=== PATIENT | female | born 1995 | race Caucasian/White ===

== ENCOUNTER 2023-10-10 07:36 | Inpatient (IN) ==
[2023-10-10] MEDS ORDERED: OXYTOCIN 30 UNITS/NSS 30 UNITS/500 ML BAG IV PRN ×2 (07:54)
[2023-10-10] MEDS ORDERED: LIDOCAINE 1% LOCAL 20 ML VIAL INFIL PRN (07:54)
--- NOTE | 2023-10-10 08:02 | Obstetrical Progress Note ---
Date of Service October 10, 2023 Assessment & Plan Admission and Anticipated Discharge Date Admission Date: October 10, 2023 Subjective Unable to do cervical Gao last night due to high patient census discussed this morning with the patient she was 1 cm 50% in the office for per previous provider recommended cervical Gao she agreed under sterile conditions using a speculum cervical Gao was placed 30 cc into the balloon of sterile saline tolerated well minimal bleeding Results & Data Vital Signs (Past 12 Hours) Vital Signs Pulse BP 10/10/23 07:49 108 H 107/71 PG Care Time/CCT Total # of Minutes Spent Total Time Spent with Patient: Total time spent is greater than 50% in coordination of care (as documented) at patient's floor/unit and/or counseling patient: Coding Level of Care Code None CPT Codes Gao Bulb Placement for Cervical Ripening - 12591 ([id number])
[2023-10-10] MEDS ORDERED: PENICILLIN GK 6 MU in DEXTROSE 5% 250 ML IV ONE (08:15)
[2023-10-10] MEDS: LACTATED RINGER'S 1,000 ML IV PRN ×5 (08:33→20:41)
--- NOTE | 2023-10-10 08:43 | History & Physical Report ---
Date of Service October 10, 2023 Assessment & Plan (1) Encounter for induction of labor: (2) Group beta Strep positive: (3) Post-dates : Plan admit, iv, labs. start pitocin. arom eventually. start pcn now for gbs pos. fhts categ 1 Admission and Anticipated Discharge Date Admission Date: October 10, 2023 History of Present Illness Chief Complaint: planned induction, postdates Primary Care Provider: NO PCP 28yo at 40+wks egmelody presents to L&D for planned induction. Gao ripening balloon placed this am due to pt unable to come in last night. No rom, no vb. +FM. No ctx. Did have vagal response after iv procedure and now doing better. Resting on side. PNC c/b 1. GBS pos PNL rh pos, ri, gbs pos OBH: g1 GYNH: nl paps, no stds Allergies Allergy/AdvReac Type Severity Reaction Status Date / Time No Known Allergies Allergy Verified 10/09/23 11:03 Home Medications Medication Instructions Recorded Confirmed Type prenat.vits,vijay,lum-gxkc-jnzkm 1 tab PO DAILY 04/08/23 10/09/23 History RSV vac, preF A and preF B(PF) 120 0.5 ml IM ONCE #1 ea 08/27/23 10/09/23 Rx mcg/0.5 mL IM solution (Abrysvo) Patient History Medical History (Updated 10/10/23 @ 08:42 by Breanne Garcia MD, FACOG) Hx of migraines Varicella vaccination Surgical History History of gynecologic surgery hymenectomy S/P tonsillectomy S/P left oophorectomy S/P wisdom tooth extraction Family History (Updated 04/08/23 @ 14:14 by Sachi Luu) Mother Hypertension Grandmother (Paternal) Diabetes Grandmother (Maternal) Skin cancer Heart disease Denies family history of Ovarian cancer Breast cancer Colorectal cancer Social History (Updated 04/08/23 @ 14:13 by Sachi Luu) Smoking Status: Never smoker Second Hand Exposure: No; Do You Dip or Chew Tobacco: No; Hx Alcohol Use: No Hx Substance Use: No Preferred Language: Pashto Communication Ability: 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 Beliefs That Will Affect Care: None marital status: marital status details: Luis Kirkland (33) [phone] Current Living Situation: Spouse Current Living Situation Comment: lives with spouse, cats-spouse changing litter current occupational status: unemployed current occupation: teacher Feels Safe at Home: Yes Review of Systems as per Subjective / HPI Physical Exam Constitutional: WD/WN, vitals as above Respiratory: normal respiratory effort, lungs clear to auscultation Cardiovascular: Rate/Rhythm: regular rate and regular rhythm Gastrointestinal (Abdomen): soft gravid nt efw 7-8# Musculoskeletal: no edema nontender calves Neurologic: grossly normal Psychiatric: A+Ox3, euthymic affect Genitourinary: Manual OB Exam: + cervical dilation (1), + cervical effacement 50% and + station (med, mid) -2 OB Exam Monitor Tracing: + external FHT mo nitor used, + external uterine monitor used (no ctx), + category I and + normal FHT variability Results & Data Vital Signs (Past 12 Hours) Vital Signs Pulse BP 10/10/23 08:37 87 116/82 10/10/23 08:35 94 H 111/82 10/10/23 08:33 85 102/68 10/10/23 08:31 87 115/76 10/10/23 08:29 82 114/75 10/10/23 08:27 89 113/55 L 10/10/23 08:24 67 93/52 L 10/10/23 08:20 59 L 58/32 L 10/10/23 07:49 108 H 107/71 Coding Level of Care Code None Diagnoses Encounter for induction of labor Z34.90 Group beta Strep positive B95.1 Post-dates O48.0
[2023-10-10 08:55] LABS: Hemoglobin 11.8 g/dl (12.0-16.0); Mean Corpuscular Hemoglobin 27.3 pg (25.0-34.0); Mean Corpuscular Hgb Conc 32.8 g/dL (32.0-36.0); Mean Corpuscular Volume 83.3 fL (80.0-100.0); Mean Platelet Volume 10.5 fL (9.4-12.4); Platelet Count 265 K/uL (130-400); RDW Coefficient of Variation 14.1 % (11.5-14.5); RDW Standard Deviation 42.5 fL (36.4-46.3); Red Blood Count 4.32 M/uL (4.20-5.40)
[2023-10-10] MEDS: PENICILLIN GK 3 MU in DEXTROSE 5% 100 ML IV PRN ×2 (13:10→21:46)
--- NOTE | 2023-10-10 14:00 | Labor Progress Brief Note ---
Date of Service October 10, 2023 Subjective no complaints. no significant pain with ctx. Assessment & Plan (1) Post-dates : (2) Encounter for induction of labor: (3) Group beta Strep positive: Plan will see how arom helps labor pattern, fhts categ 1. pcn for gbs pos. c/w pitocin Admission and Anticipated Discharge Date Admission Date: October 10, 2023 Physical Exam Constitutional: WD/WN, vitals as above Genitourinary: Manual OB Exam: + cervical dilation 4 cm, + cervical effacement 60%, + station -2 and + amniotic fluid (arom) clear OB Exam Monitor Tracing: + external FHT monitor used (q2-3 pit at 11), + external uterine monitor used (q2. pit at 12), + category I and + normal FHT variability Results & Data Vital Signs (Past 12 Hours) Vital Signs Temp Pulse Resp BP Pulse Ox 10/10/23 13:44 85 112/68 10/10/23 13:39 79 122/77 10/10/23 13:24 92 H 118/77 10/10/23 13:09 90 110/75 10/10/23 12:55 88 111/71 10/10/23 12:38 96 H 98/59 L 10/10/23 12:24 105 H 10/10/23 12:24 108/69 10/10/23 12:24 100 H 114/73 10/10/23 12:08 93 H 118/79 10/10/23 11:54 98.1 F 88 18 114/77 10/10/23 11:39 90 91/52 L 10/10/23 11:23 86 112/74 10/10/23 11:08 95 H 92/58 L 10/10/23 10:53 89 91/55 L 10/10/23 10:38 94 H 104/69 10/10/23 10:32 96 H 101/72 10/10/23 10:13 91 H 117/76 10/10/23 10:10 87 100 10/10/23 10:09 85 113/70 10/10/23 10:05 84 100 10/10/23 10:03 84 113/76 10/10/23 10:00 85 100 10/10/23 09:58 83 112/73 10/10/23 09:55 84 100 10/10/23 09:53 81 115/67 10/10/23 09:50 84 100 10/10/23 09:48 84 114/73 10/10/23 09:45 82 100 10/10/23 09:43 83 110/73 10/10/23 09:40 80 100 10/10/23 09:37 93 H 117/72 10/10/23 09:35 82 10/10/23 09:35 83 114/70 100 10/10/23 09:33 84 128/73 10/10/23 09:32 84 123/74 10/10/23 09:30 75 100 10/10/23 09:29 71 82/51 L 10/10/23 09:27 67 85/51 L 10/10/23 09:25 76 79/51 L 10/10/23 09:24 66 84/52 L 10/10/23 09:22 70 72/42 L 10/10/23 09:03 83 114/76 10/10/23 09:01 82 109/73 10/10/23 08:59 88 108/72 10/10/23 08:57 90 108/71 10/10/23 08:55 82 109/74 10/10/23 08:53 98 H 118/81 10/10/23 08:51 86 115/76 10/10/23 08:49 80 112/75 10/10/23 08:47 81 108/76 10/10/23 08:45 85 111/79 10/10/23 08:43 88 108/76 10/10/23 08:41 84 113/71 10/10/23 08:39 94 H 124/79 10/10/23 08:37 87 116/82 10/10/23 08:35 94 H 111/82 10/10/23 08:33 85 102/68 10/10/23 08:31 87 115/76 10/10/23 08:29 82 114/75 10/10/23 08:27 89 113/55 L 10/10/23 08:24 67 93/52 L 10/10/23 08:20 59 L 58/32 L 10/10/23 07:49 97.7 F 108 H 20 107/71 Coding Level of Care Code None Diagnoses Post-dates O48.0 Encounter for induction of labor Z34.90 Group beta Strep positive B95.1
[2023-10-10] MEDS ORDERED: fentaNYL citrate PF 100 MCG/2 ML VIAL ONE (16:20)
[2023-10-10] MEDS ORDERED: SODIUM CHLORIDE 0.9% PF INJ 10 ML VIAL ONE (16:21)
[2023-10-10] MEDS ORDERED: fentANYL 2 MCG/ML BUPIVacaine 0.125%-NSS 100ML BAG ONE (16:21)
[2023-10-10] MEDS ORDERED: ePHEDrine sulfate 50 MG/ML AMP ONE ×2 (16:21→16:22)
[2023-10-10] MEDS ORDERED: LIDOCAINE 2%/EPINEPHRINE 1:200,000 20 ML PF ONE (16:21)
[2023-10-10] MEDS ORDERED: BUPIVACAINE 0.25% PF 30 ML VIAL ONE (16:21)
[2023-10-10] MEDS ORDERED: BUPIVACAINE 0.25% PF 30 ML VIAL EPI PRN (17:24)
[2023-10-10] MEDS ORDERED: NALOXONE HCL 1 MG in SODIUM CHLORIDE 0.9% 1,000 ML IV PRN (17:24)
[2023-10-10] MEDS ORDERED: LIDOCAINE 2% MPF LOCAL 5 ML VIAL EPI PRN (17:24)
[2023-10-10] MEDS ORDERED: diphenhydrAMINE 50 MG/ML VIAL IV PRN (17:24)
[2023-10-10] MEDS ORDERED: fentANYL 2 MCG/ML BUPIVacaine 0.125%-NSS 100ML BAG EPI PRN (17:24)
[2023-10-10] MEDS ORDERED: fentaNYL citrate PF 100 MCG/2 ML VIAL EPI STA (17:24)
[2023-10-10] MEDS ORDERED: ePHEDrine sulfate 50 MG/ML AMP IV PRN (17:24)
[2023-10-10] MEDS ORDERED: fentaNYL citrate PF 100 MCG/2 ML VIAL EPI PRN (17:24)
[2023-10-10] MEDS ORDERED: ROPIVACAINE 0.5% PF 5 MG/ML 20 ML VIAL EPI PRN (17:24)
[2023-10-10] MEDS ORDERED: NALBUPHINE HCL 5 MG in SYRINGE 0 ML IV PRN (17:24)
[2023-10-10] MEDS ORDERED: BUPIVACAINE 0.25% PF 30 ML VIAL EPI STA (17:24)
[2023-10-10] MEDS ORDERED: NALOXONE HCL 0.4 MG/1 ML VIAL/CARP IV PRN (17:24)
[2023-10-10] MEDS ORDERED: SODIUM CHLORIDE 0.9% PF INJ 10 ML VIAL EPI PRN (17:24)
[2023-10-10] MEDS ORDERED: SODIUM CHLORIDE 0.9% PF INJ 10 ML VIAL EPI STA (17:24)
[2023-10-10] MEDS ORDERED: LIDOCAINE 2%/EPINEPHRINE 1:200,000 20 ML PF EPI STA (17:24)
--- NOTE | 2023-10-10 17:27 | Anesthesiology Consultation ---
Date of Service October 10, 2023 Assessment & Plan Chart Review Chart Review: Patient NOT seen in Pre Admission Testing and Acceptable Risk for Labor Epidural Consults Requested none ASA ASA2 Proposed Anesthesia Anesthesia Type: Labor Epidural Risk / Benefits Reviewed With: PT / POA / Parent / Guardian, Accepts Plan and Informed Consent Obtained History Height/Weight Height: 5 ft 3 in Weight: 92.986 kg Allergies Allergy/AdvReac Type Severity Reaction Status Date / Time No Known Allergies Allergy Verified 10/09/23 11:03 Medications Home Medications Medication Instructions Recorded Confirmed Last Taken prenat.vits,vijay,lrb-xayy-pidpc 1 tab PO DAILY 04/08/23 10/10/23 10/08/23 RSV vac, preF A and preF B(PF) 120 0.5 ml IM ONCE #1 ea 08/27/23 10/10/23 09/10/23 mcg/0.5 mL IM solution (Abrysvo) Active Medications Generic Name Dose Route Start Last Admin Trade Name Freq PRN Reason Stop Dose Admin Oxytocin 30 units in 500 mls @ 18 mls/hr 10/10/23 07:54 10/10/23 14:45 Pitocin 30 Units/Nss IV 10/12/23 07:53 1.08 units/hr .Q24H PRN 18 mls/hr Labor Induction/Augmentation Titration Protocol 1.08 UNITS/HR Lactated Ringer's 1,000 mls @ 125 mls/hr 10/10/23 07:54 10/10/23 15:23 Lr IV 10/12/23 07:53 125 mls/hr .Q8H PRN Administration L&D Protocol Protocol Penicillin G Potassium 3 mu/ 106 mls @ 100 mls/hr 10/10/23 10:54 10/10/23 14:15 Dextrose IV 10/20/23 10:53 Infused Q4H PRN Infusion GBS(+) Until Delivery NPO Date Last Intake of Fluids: 10/10/23 Time Last Intake of Fluids: 16:50 Date Last Intake of Solids: 10/10/23 Time Last Intake of Solids: 06:00 Past Medical History Medical History Hx of migraines Varicella vaccination Exercise / Class Metabolic Activity II 4-5 Yardwork/Stairs/Walk up hill Past Family History Family History (Updated 04/08/23 @ 14:14 by Sachi Luu) Mother Hypertension Grandmother (Paternal) Diabetes Grandmother (Maternal) Skin cancer Heart disease Denies family history of Ovarian cancer Breast cancer Colorectal cancer Past Surgical History Surgical History (Updated 10/10/23 @ 08:53 by Naheed Correa RN) History of hymenectomy History of gynecologic surgery hymenectomy S/P tonsillectomy S/P left oophorectomy S/P wisdom tooth extraction Past Anesthesia History No Hx of Anesthesia Complications and No Family Hx of Anesthesia Complications History of PONV No Hx of PONV and No Hx of Motion Sickness Social History Smoking Status: Never smoker Do You Dip or Chew Tobacco: No Hx Alcohol Use: No Hx Substance Use: No Review of Systems ROS Unobtainable: All systems reviewed & are unremarkable except as noted in HPI & below Physical Exam Vital Signs Last Vital Signs Temp 37.0 C 10/10/23 17:00 Pulse 78 10/10/23 17:23 Resp 20 10/10/23 17:00 BP 105/70 10/10/23 17:23 Pulse Ox 100 10/10/23 17:21 ENMT Mouth: no TMJ abnormality Thyromental Distance: > or= 3.5 Finger Breadths Mallampati Class: II Neck normal visual inspection and trachea midline; neck extension not limited Respiratory normal respiratory effort Auscultation: lungs clear to auscultation bilaterally Cardiovascular Rate/Rhythm: regular rate and regular rhythm Heart Sounds: no murmur Musculoskeletal Spine: normal cervical ROM Extremities: full ROM of extremities Neurologic moves all extremities Psychiatric Orientation: alert and oriented x 3 Testing Laboratory Results 10/10/23 08:26 Blood Type A Positive 10/10/23 08:26 Antibody Screen NEGATIVE 10/10/23 08:26
--- NOTE | 2023-10-10 17:59 | Labor Progress Brief Note ---
Date of Service October 10, 2023 Subjective ctsp due to decel, when i arrived iv bolus aleady going, pit off, pt moving to knee chest position. cx already checked by nurse 6-7cm and 0 station, she just had her epidural placed. Assessment & Plan (1) Encounter for induction of labor: (2) Post-dates : (3) Group beta Strep positive: Plan decel is resolving. now categ 1. will allow in utero resuscitation and plan restart pit if needed. good cx change. c/w pcn for gbs pos Admission and Anticipated Discharge Date Admission Date: October 10, 2023 Physical Exam Genitourinary: OB Exam Monitor Tracing: + external FHT monitor used, + ex ternal uterine monitor used, + category I and + normal FHT variability fht 90s on my arrival and recovering to 140s with accels mod variability. bp ok. Results & Data Vital Signs (Past 12 Hours) Vital Signs Temp Pulse Resp BP Pulse Ox 10/10/23 17:53 128/69 10/10/23 17:52 110 H 139/81 10/10/23 17:51 106 H 100 10/10/23 17:49 122 H 107/55 L 10/10/23 17:47 105 H 110/58 L 10/10/23 17:46 110 H 100 10/10/23 17:45 103 H 113/63 10/10/23 17:44 113 H 126/58 L 10/10/23 17:41 123 H 10/10/23 17:41 127 H 110/79 100 10/10/23 17:40 99 H 10/10/23 17:40 105/73 10/10/23 17:40 113 H 102/65 10/10/23 17:37 106 H 101/56 L 10/10/23 17:36 100 H 100 10/10/23 17:35 93 H 100/57 L 10/10/23 17:33 90 106/68 10/10/23 17:31 92 H 109/68 100 10/10/23 17:29 102 H 106/67 10/10/23 17:27 102 H 103/67 10/10/23 17:26 100 H 100 10/10/23 17:25 105 H 101/67 10/10/23 17:23 78 105/70 10/10/23 17:21 96 H 10/10/23 17:21 95 H 107/72 100 10/10/23 17:19 100 H 115/78 10/10/23 17:17 88 108/69 10/10/23 17:16 96 H 100 10/10/23 17:15 101 H 119/76 10/10/23 17:14 85 114/73 10/10/23 17:12 80 91 10/10/23 17:11 68 10/10/23 17:11 76 101/65 100 10/10/23 17:09 88 100/63 10/10/23 17:08 80 109/67 10/10/23 17:06 91 H 100 10/10/23 17:03 67 107/64 10/10/23 17:01 82 111/69 100 10/10/23 17:00 20 10/10/23 17:00 98.6 F 81 20 10/10/23 16:56 79 100 10/10/23 16:55 95 H 109/71 10/10/23 16:45 94 H 115/78 10/10/23 16:39 90 109/66 10/10/23 16:24 85 111/68 10/10/23 16:17 92 H 114/74 10/10/23 16:11 93 H 99/62 L 10/10/23 15:55 93 H 103/67 10/10/23 15:38 93 H 99/65 L 10/10/23 15:23 87 100/65 10/10/23 15:09 84 106/73 10/10/23 14:55 80 109/72 10/10/23 14:38 81 99/60 L 10/10/23 14:23 86 98/61 L 10/10/23 14:12 86 110/62 10/10/23 13:53 90 113/68 10/10/23 13:44 85 10/10/23 13:44 112/68 10/10/23 13:44 98.6 F 85 18 112/68 10/10/23 13:39 79 122/77 10/10/23 13:24 92 H 118/77 10/10/23 13:09 90 110/75 10/10/23 12:55 88 111/71 10/10/23 12:38 96 H 98/59 L 10/10/23 12:24 105 H 10/10/23 12:24 108/69 10/10/23 12:24 100 H 114/73 10/10/23 12:08 93 H 118/79 10/10/23 11:54 98.1 F 88 18 114/77 10/10/23 11:39 90 91/52 L 10/10/23 11:23 86 112/74 10/10/23 11:08 95 H 92/58 L 10/10/23 10:53 89 91/55 L 10/10/23 10:38 94 H 104/69 10/10/23 10:32 96 H 101/72 10/10/23 10:13 91 H 117/76 10/10/23 10:10 87 100 10/10/23 10:09 85 113/70 10/10/23 10:05 84 100 10/10/23 10:03 84 113/76 10/10/23 10:00 85 100 10/10/23 09:58 83 112/73 10/10/23 09:55 84 100 10/10/23 09:53 81 115/67 10/10/23 09:50 84 100 10/10/23 09:48 84 114/73 10/10/23 09:45 82 100 10/10/23 09:43 83 110/73 10/10/23 09:40 80 100 10/10/23 09:37 93 H 117/72 10/10/23 09:35 82 10/10/23 09:35 83 114/70 100 10/10/23 09:33 84 128/73 10/10/23 09:32 84 123/74 10/10/23 09:30 75 100 10/10/23 09:29 71 82/51 L 10/10/23 09:27 67 85/51 L 10/10/23 09:25 76 79/51 L 10/10/23 09:24 66 84/52 L 10/10/23 09:22 70 72/42 L 10/10/23 09:03 83 114/76 10/10/23 09:01 82 109/73 10/10/23 08:59 88 108/72 10/10/23 08:57 90 108/71 10/10/23 08:55 82 109/74 10/10/23 08:53 98 H 118/81 10/10/23 08:51 86 115/76 12/07/23 08:49 80 112/75 10/10/23 08:47 81 108/76 10/10/23 08:45 85 111/79 10/10/23 08:43 88 108/76 10/10/23 08:41 84 113/71 10/10/23 08:39 94 H 124/79 10/10/23 08:37 87 116/82 10/10/23 08:35 94 H 111/82 10/10/23 08:33 85 102/68 10/10/23 08:31 87 115/76 10/10/23 08:29 82 114/75 10/10/23 08:27 89 113/55 L 10/10/23 08:24 67 93/52 L 10/10/23 08:20 59 L 58/32 L 10/10/23 07:49 97.7 F 108 H 20 107/71 Coding Level of Care Code None Diagnoses Encounter for induction of labor Z34.90 Post-dates O48.0 Group beta Strep positive B95.1
[2023-10-10] MEDS ORDERED: Nursing to Pharmacy Communication SCH (23:45)
--- NOTE | 2023-10-11 00:57 | Labor Progress Brief Note ---
Date of Service October 11, 2023 Subjective shaking in labor. ? if having pain Assessment & Plan (1) Encounter for induction of labor: (2) Post-dates : (3) Group beta Strep positive: Plan cont to increase pitocin to keep labor pattern regular. fhts categ 1. Admission and Anticipated Discharge Date Admission Date: October 10, 2023 Physical Exam Constitutional: WD/WN, vitals as above Genitourinary: Manual OB Exam: + cervical dilation (rim), + cervical effacement 100% and + station 0 OB Exam Monitor Tracing: + external FHT monitor used, + external uterine monitor used (q2-3), + category I and + normal FHT variability Results & Data Vital Signs (Past 12 Hours) Vital Signs Temp Pulse Resp BP Pulse Ox 10/11/23 00:51 98 H 100 10/11/23 00:46 93 H 100 10/11/23 00:43 100 H 117/68 10/11/23 00:41 103 H 99 10/11/23 00:36 99 H 100 10/11/23 00:31 96 H 100 10/11/23 00:29 109 H 97/52 L 10/11/23 00:26 99 H 100 10/11/23 00:21 104 H 100 10/11/23 00:16 92 H 100 10/11/23 00:12 93 H 94/55 L 10/11/23 00:11 100 H 100 10/11/23 00:06 93 H 100 10/11/23 00:01 101 H 99 10/10/23 23:57 91 H 97/58 L 10/10/23 23:56 104 H 100 10/10/23 23:51 93 H 99 10/10/23 23:46 97 H 100 10/10/23 23:42 100 H 97/60 L 10/10/23 23:41 102 H 99 10/10/23 23:36 102 H 100 10/10/23 23:31 93 H 100 10/10/23 23:29 98 H 97/59 L 10/10/23 23:28 87 87/53 L 10/10/23 23:26 86 100 10/10/23 23:21 87 100 10/10/23 23:18 92 H 99/58 L 10/10/23 23:16 96 H 99 10/10/23 23:11 112 H 100 10/10/23 23:06 107 H 100 10/10/23 23:01 104 H 100 10/10/23 23:00 18 10/10/23 23:00 98.2 F 18 10/10/23 22:58 101 H 123/76 10/10/23 22:56 100 H 100 10/10/23 22:51 97 H 100 10/10/23 22:46 90 99 10/10/23 22:42 96 H 115/70 10/10/23 22:41 93 H 100 10/10/23 22:36 99 H 100 10/10/23 22:31 98 H 100 10/10/23 22:26 98 H 100 10/10/23 22:21 110 H 100 10/10/23 22:16 109 H 100 10/10/23 22:13 92 H 102/55 L 10/10/23 22:11 96 H 100 10/10/23 22:06 90 100 10/10/23 22:01 95 H 100 10/10/23 21:58 94 H 105/56 L 10/10/23 21:56 94 H 100 10/10/23 21:51 95 H 100 10/10/23 21:46 98 H 100 10/10/23 21:42 97 H 97/54 L 10/10/23 21:41 91 H 99 10/10/23 21:36 87 99 10/10/23 21:31 94 H 100 10/10/23 21:27 85 93/51 L 10/10/23 21:26 83 98 10/10/23 21:21 88 99 10/10/23 21:16 103 H 100 10/10/23 21:13 102 H 103/62 10/10/23 21:11 94 H 100 10/10/23 21:06 95 H 100 10/10/23 21:01 98 H 99 10/10/23 21:00 18 10/10/23 21:00 97.9 F 18 10/10/23 20:57 107 H 102/66 10/10/23 20:56 97 H 100 10/10/23 20:51 100 H 99 10/10/23 20:46 95 H 99 10/10/23 20:44 93 H 109/68 10/10/23 20:43 96 H 106/67 10/10/23 20:41 90 100 10/10/23 20:36 94 H 99 10/10/23 20:31 98 H 100 10/10/23 20:29 96 H 109/80 10/10/23 20:26 104 H 98 10/10/23 20:21 96 H 99 10/10/23 20:16 88 99 10/10/23 20:13 96 H 118/76 10/10/23 20:11 99 H 100 10/10/23 20:06 101 H 100 10/10/23 20:01 94 H 100 10/10/23 19:58 88 112/79 10/10/23 19:56 88 98 10/10/23 19:51 91 H 99 10/10/23 19:46 96 H 100 10/10/23 19:42 91 H 109/75 10/10/23 19:41 91 H 100 10/10/23 19:36 90 100 10/10/23 19:31 87 99 10/10/23 19:28 90 113/72 10/10/23 19:26 90 99 10/10/23 19:21 114 H 100 10/10/23 19:16 90 99 10/10/23 19:12 94 H 106/66 10/10/23 19:11 91 H 100 10/10/23 19:06 90 100 10/10/23 19:05 98.2 F 18 10/10/23 19:05 18 10/10/23 19:05 98.2 F 18 10/10/23 19:01 99 H 100 10/10/23 18:58 88 109/72 10/10/23 18:56 88 100 10/10/23 18:51 94 H 99 10/10/23 18:46 89 100 10/10/23 18:43 91 H 110/68 10/10/23 18:41 90 100 10/10/23 18:36 99 H 100 10/10/23 18:31 97 H 100 10/10/23 18:30 18 10/10/23 18:30 18 10/10/23 18:26 85 100 10/10/23 18:23 99 H 123/73 10/10/23 18:22 94 H 136/80 10/10/23 18:21 96 H 100 10/10/23 18:16 104 H 98 10/10/23 18:15 79 18 123/68 10/10/23 18:13 91 H 123/74 10/10/23 18:11 96 H 122/71 99 10/10/23 18:09 90 121/69 10/10/23 18:07 96 H 117/68 10/10/23 18:06 101 H 100 10/10/23 18:05 102 H 123/76 10/10/23 18:03 89 121/70 10/10/23 18:01 92 H 122/70 100 10/10/23 18:00 18 10/10/23 18:00 18 10/10/23 17:59 90 117/70 10/10/23 17:58 108 H 111/61 10/10/23 17:56 104 H 131/69 100 10/10/23 17:53 99 H 128/69 10/10/23 17:52 110 H 139/81 10/10/23 17:51 106 H 100 10/10/23 17:49 122 H 107/55 L 10/10/23 17:47 105 H 110/58 L 10/10/23 17:46 110 H 100 10/10/23 17:45 103 H 16 113/63 10/10/23 17:44 113 H 126/58 L 10/10/23 17:41 123 H 10/10/23 17:41 127 H 110/79 100 10/10/23 17:40 99 H 10/10/23 17:40 105/73 10/10/23 17:40 113 H 102/65 10/10/23 17:37 106 H 101/56 L 10/10/23 17:36 100 H 100 10/10/23 17:35 93 H 100/57 L 10/10/23 17:33 90 106/68 10/10/23 17:31 92 H 109/68 100 10/10/23 17:30 16 10/10/23 17:30 16 10/10/23 17:29 102 H 106/67 10/10/23 17:27 102 H 103/67 10/10/23 17:26 100 H 100 10/10/23 17:25 105 H 16 101/67 10/10/23 17:23 78 105/70 10/10/23 17:21 96 H 10/10/23 17:21 95 H 107/72 100 10/10/23 17:20 18 10/10/23 17:20 18 10/10/23 17:19 100 H 115/78 10/10/23 17:17 88 108/69 10/10/23 17:16 96 H 100 10/10/23 17:15 101 H 119/76 10/10/23 17:14 85 114/73 10/10/23 17:12 80 91 10/10/23 17:11 68 10/10/23 17:11 76 101/65 100 10/10/23 17:09 88 100/63 10/10/23 17:08 80 109/67 10/10/23 17:06 91 H 100 10/10/23 17:03 67 107/64 10/10/23 17:01 82 111/69 100 10/10/23 17:00 20 10/10/23 17:00 98.6 F 81 20 10/10/23 16:56 79 100 10/10/23 16:55 95 H 109/71 10/10/23 16:45 94 H 115/78 10/10/23 16:39 90 109/66 10/10/23 16:24 85 111/68 10/10/23 16:17 92 H 114/74 10/10/23 16:11 93 H 99/62 L 10/10/23 15:55 93 H 103/67 10/10/23 15:38 98.6 F 93 H 18 99/65 L 10/10/23 15:23 87 100/65 10/10/23 15:09 84 106/73 10/10/23 14:55 80 109/72 10/10/23 14:38 81 99/60 L 10/10/23 14:23 86 98/61 L 10/10/23 14:12 86 110/62 10/10/23 13:53 90 113/68 10/10/23 13:44 85 10/10/23 13:44 112/68 10/10/23 13:44 98.6 F 85 18 112/68 10/10/23 13:39 79 122/77 10/10/23 13:24 92 H 118/77 10/10/23 13:09 90 110/75 10/10/23 12:55 88 111/71 Coding Level of Care Code None Diagnoses Encounter for induction of labor Z34.90 Post-dates O48.0 Group beta Strep positive B95.1
--- NOTE | 2023-10-11 01:08 | Anesthesia Procedure Note ---
Date of Service October 11, 2023 Anesthesia Epidural Re-Dose Vital Signs Temp Pulse Resp BP Pulse Ox 36.8 C 98 H 18 115/71 100 10/10/23 23:00 10/11/23 01:06 10/10/23 23:00 10/11/23 00:58 10/11/23 01:06 Notes Pain Intensity: 6 Dilatation (cm): 9.0 Effacement (%): 90 Called by nursing to evaluate epidural as the patient is having increased pain. The epidural was re-dosed with the following medications (all medications via epidural route) after negative aspiration of the epidural catheter for CSF/HEME. 0.2 Ropivacaine ml via epidural After Epidural Re-Dose Mental Status: alert / awake / arousable and participated in evaluation Pain: improving with treatment Airway Patency, RR, SpO2: stable & adequate BP & HR: stable & adequate Additional Notes: When tested with ice, patient had T12 level. Redosed with 10 cc of 0.25% bupi. Reassessed. Pain improved.
[2023-10-11] MEDS ORDERED: ACETAMINOPHEN 325 MG TAB PO ONE (01:16)
[2023-10-11] MEDS: PENICILLIN GK 3 MU in DEXTROSE 5% 100 ML IV PRN (01:53)
--- NOTE | 2023-10-11 03:26 | Labor Progress Brief Note ---
Date of Service October 11, 2023 Subjective pt resting. denies feeling ctx. Assessment & Plan (1) Encounter for induction of labor: (2) Post-dates : (3) Group beta Strep positive: Plan ok to begin 2nd stage. fhts categ 1. will need to change positions. Admission and Anticipated Discharge Date Admission Date: October 10, 2023 Physical Exam Constitutional: WD/WN, vitals as above Genitourinary: Manual OB Exam: + cervical dilation 10 cm, + cervical effacement 100% and + station + 2 OB Exam Monitor Tracing: + external FHT monitor used, + external uterine monitor used (q2), + category I and + normal FHT variability Results & Data Vital Signs (Past 12 Hours) Vital Signs Temp Pulse Resp BP Pulse Ox 10/11/23 03:21 121 H 99 10/11/23 03:16 104 H 100 10/11/23 03:13 126 H 129/65 10/11/23 03:11 95 H 97 10/11/23 03:06 97 H 96 10/11/23 03:01 90 97 10/11/23 02:57 96 H 108/67 10/11/23 02:56 94 H 97 10/11/23 02:51 94 H 99 10/11/23 02:46 92 H 98 10/11/23 02:42 93 H 104/66 10/11/23 02:41 94 H 97 10/11/23 02:36 96 H 96 10/11/23 02:31 95 H 97 10/11/23 02:27 96 H 99/64 L 10/11/23 02:26 92 H 97 10/11/23 02:21 90 97 10/11/23 02:16 93 H 98 10/11/23 02:13 107 H 111/73 10/11/23 02:11 97 H 99 10/11/23 02:06 102 H 100 10/11/23 02:01 100 H 100 10/11/23 02:00 107 H 112/69 10/11/23 01:56 105 H 99 10/11/23 01:51 92 H 99 10/11/23 01:46 96 H 99 10/11/23 01:43 96 H 117/75 10/11/23 01:41 104 H 100 10/11/23 01:36 100 H 100 10/11/23 01:31 102 H 99 10/11/23 01:27 99 H 116/69 10/11/23 01:26 99 H 100 10/11/23 01:21 86 98 10/11/23 01:16 94 H 100 10/11/23 01:13 96 H 116/70 10/11/23 01:11 106 H 99 10/11/23 01:06 98 H 100 10/11/23 01:01 101 H 100 10/11/23 01:00 18 10/11/23 01:00 98.2 F 18 10/11/23 00:58 101 H 115/71 10/11/23 00:56 96 H 99 10/11/23 00:51 98 H 100 10/11/23 00:46 93 H 100 10/11/23 00:43 100 H 117/68 10/11/23 00:41 103 H 99 10/11/23 00:36 99 H 100 10/11/23 00:31 96 H 100 10/11/23 00:29 109 H 97/52 L 10/11/23 00:26 99 H 100 10/11/23 00:21 104 H 100 10/11/23 00:16 92 H 100 10/11/23 00:12 93 H 94/55 L 10/11/23 00:11 100 H 100 10/11/23 00:06 93 H 100 10/11/23 00:01 101 H 99 10/10/23 23:57 91 H 97/58 L 10/10/23 23:56 104 H 100 10/10/23 23:51 93 H 99 10/10/23 23:46 97 H 100 10/10/23 23:42 100 H 97/60 L 10/10/23 23:41 102 H 99 10/10/23 23:36 102 H 100 10/10/23 23:31 93 H 100 10/10/23 23:29 98 H 97/59 L 10/10/23 23:28 87 87/53 L 10/10/23 23:26 86 100 10/10/23 23:21 87 100 10/10/23 23:18 92 H 99/58 L 10/10/23 23:16 96 H 99 10/10/23 23:11 112 H 100 10/10/23 23:06 107 H 100 10/10/23 23:01 104 H 100 10/10/23 23:00 18 10/10/23 23:00 98.2 F 18 10/10/23 22:58 101 H 123/76 10/10/23 22:56 100 H 100 10/10/23 22:51 97 H 100 10/10/23 22:46 90 99 10/10/23 22:42 96 H 115/70 10/10/23 22:41 93 H 100 10/10/23 22:36 99 H 100 10/10/23 22:31 98 H 100 10/10/23 22:26 98 H 100 10/10/23 22:21 110 H 100 10/10/23 22:16 109 H 100 10/10/23 22:13 92 H 102/55 L 10/10/23 22:11 96 H 100 10/10/23 22:06 90 100 10/10/23 22:01 95 H 100 10/10/23 21:58 94 H 105/56 L 10/10/23 21:56 94 H 100 10/10/23 21:51 95 H 100 10/10/23 21:46 98 H 100 10/10/23 21:42 97 H 97/54 L 10/10/23 21:41 91 H 99 10/10/23 21:36 87 99 10/10/23 21:31 94 H 100 10/10/23 21:27 85 93/51 L 10/10/23 21:26 83 98 10/10/23 21:21 88 99 10/10/23 21:16 103 H 100 10/10/23 21:13 102 H 103/62 10/10/23 21:11 94 H 100 10/10/23 21:06 95 H 100 10/10/23 21:01 98 H 99 10/10/23 21:00 18 10/10/23 21:00 97.9 F 18 10/10/23 20:57 107 H 102/66 10/10/23 20:56 97 H 100 10/10/23 20:51 100 H 99 10/10/23 20:46 95 H 99 10/10/23 20:44 93 H 109/68 10/10/23 20:43 96 H 106/67 10/10/23 20:41 90 100 10/10/23 20:36 94 H 99 10/10/23 20:31 98 H 100 10/10/23 20:29 96 H 109/80 10/10/23 20:26 104 H 98 10/10/23 20:21 96 H 99 10/10/23 20:16 88 99 10/10/23 20:13 96 H 118/76 10/10/23 20:11 99 H 100 10/10/23 20:06 101 H 100 10/10/23 20:01 94 H 100 10/10/23 19:58 88 112/79 10/10/23 19:56 88 98 10/10/23 19:51 91 H 99 10/10/23 19:46 96 H 100 10/10/23 19:42 91 H 109/75 10/10/23 19:41 91 H 100 10/10/23 19:36 90 100 10/10/23 19:31 87 99 10/10/23 19:28 90 113/72 10/10/23 19:26 90 99 10/10/23 19:21 114 H 100 10/10/23 19:16 90 99 10/10/23 19:12 94 H 106/66 10/10/23 19:11 91 H 100 10/10/23 19:06 90 100 10/10/23 19:05 98.2 F 18 10/10/23 19:05 18 10/10/23 19:05 98.2 F 18 10/10/23 19:01 99 H 100 10/10/23 18:58 88 109/72 10/10/23 18:56 88 100 10/10/23 18:51 94 H 99 10/10/23 18:46 89 100 10/10/23 18:43 91 H 110/68 10/10/23 18:41 90 100 10/10/23 18:36 99 H 100 10/10/23 18:31 97 H 100 10/10/23 18:30 18 10/10/23 18:30 18 10/10/23 18:26 85 100 10/10/23 18:23 99 H 123/73 10/10/23 18:22 94 H 136/80 10/10/23 18:21 96 H 100 10/10/23 18:16 104 H 98 10/10/23 18:15 79 18 123/68 10/10/23 18:13 91 H 123/74 10/10/23 18:11 96 H 122/71 99 10/10/23 18:09 90 121/69 10/10/23 18:07 96 H 117/68 10/10/23 18:06 101 H 100 10/10/23 18:05 102 H 123/76 10/10/23 18:03 89 121/70 10/10/23 18:01 92 H 122/70 100 10/10/23 18:00 18 10/10/23 18:00 18 10/10/23 17:59 90 117/70 10/10/23 17:58 108 H 111/61 10/10/23 17:56 104 H 131/69 100 10/10/23 17:53 99 H 128/69 10/10/23 17:52 110 H 139/81 10/10/23 17:51 106 H 100 10/10/23 17:49 122 H 107/55 L 10/10/23 17:47 105 H 110/58 L 10/10/23 17:46 110 H 100 10/10/23 17:45 103 H 16 113/63 10/10/23 17:44 113 H 126/58 L 10/10/23 17:41 123 H 10/10/23 17:41 127 H 110/79 100 10/10/23 17:40 99 H 10/10/23 17:40 105/73 10/10/23 17:40 113 H 102/65 10/10/23 17:37 106 H 101/56 L 10/10/23 17:36 100 H 100 10/10/23 17:35 93 H 100/57 L 10/10/23 17:33 90 106/68 10/10/23 17:31 92 H 109/68 100 10/10/23 17:30 16 10/10/23 17:30 16 10/10/23 17:29 102 H 106/67 10/10/23 17:27 102 H 103/67 10/10/23 17:26 100 H 100 10/10/23 17:25 105 H 16 101/67 10/10/23 17:23 78 105/70 10/10/23 17:21 96 H 10/10/23 17:21 95 H 107/72 100 10/10/23 17:20 18 10/10/23 17:20 18 10/10/23 17:19 100 H 115/78 10/10/23 17:17 88 108/69 10/10/23 17:16 96 H 100 10/10/23 17:15 101 H 119/76 10/10/23 17:14 85 114/73 10/10/23 17:12 80 91 10/10/23 17:11 68 10/10/23 17:11 76 101/65 100 10/10/23 17:09 88 100/63 10/10/23 17:08 80 109/67 10/10/23 17:06 91 H 100 10/10/23 17:03 67 107/64 10/10/23 17:01 82 111/69 100 10/10/23 17:00 20 10/10/23 17:00 98.6 F 81 20 10/10/23 16:56 79 100 10/10/23 16:55 95 H 109/71 10/10/23 16:45 94 H 115/78 10/10/23 16:39 90 109/66 10/10/23 16:24 85 111/68 10/10/23 16:17 92 H 114/74 10/10/23 16:11 93 H 99/62 L 10/10/23 15:55 93 H 103/67 10/10/23 15:38 98.6 F 93 H 18 99/65 L Coding Level of Care Code None Diagnoses Encounter for induction of labor Z34.90 Post-dates O48.0 Group beta Strep positive B95.1
--- NOTE | 2023-10-11 05:47 | Delivery Summary ---
Vaginal Delivery Summary Date of Service October 11, 2023 Vaginal Delivery Summary and 2nd Degree LAC The patient dilated to complete and pushed to deliver a viable female Apgars 8 and 9 via over 2nd degree perineal laceration. Mouth and nose bulb suctioned at perineum. Shoulders and body delivered with ease. was vigorous and crying at . Cord clamped at 30 seconds of life and to maternal abdomen where the cord was then doubly clamped and cut. Placenta delivered spontaneously and intact, three-vessel cord. Hemostasis achieved with dilute pitocin and uterine massage and drainage of the bladder for approximately 100 cc under sterile conditions. Laceration repaired with 3-0 and 2-0 vicryl in usual fashion. Cervix and sulci intact. EBL 300 cc. Mother and baby stable in recovery. [facility] [place] Charge Delivery Type Details: and 2nd Degree LAC
[2023-10-11] MEDS ORDERED: bisacodyL 10 MG SUPP PR PRN (05:59)
[2023-10-11] MEDS ORDERED: HYDROCORTISONE ACETATE 25 MG SUPP PR PRN (05:59)
[2023-10-11] MEDS ORDERED: oxyCODONE/ACETAMINOPHEN 5mg/325mg TAB PO PRN (05:59)
[2023-10-11] MEDS ORDERED: OXYTOCIN 30 UNITS/NSS 30 UNITS/500 ML BAG IV PRN (05:59)
[2023-10-11] MEDS ORDERED: DIPHTHERIA/TETANUS/PERTUSSIS Vaccine (Tdap, Age 7+yrs) 0.5mL SYR/VL IM ONE (05:59)
[2023-10-11] MEDS ORDERED: BENZOCAINE 20% SPRY 85 APPLN/85 GM CAN EXT PRN (05:59)
[2023-10-11] MEDS: OXYTOCIN 20 UNITS/LR 1,002 ML IV SCH ×2 (06:39→18:22)
--- NOTE | 2023-10-11 07:06 | Anesthesia Procedure Note ---
Date of Service October 11, 2023 Anesthesia Post Epidural Note Vital Signs Vital Signs: Temp Pulse Resp BP Pulse Ox 97.9 F 91 H 18 117/67 100 10/11/23 06:56 10/11/23 07:05 10/11/23 06:56 10/11/23 07:05 10/11/23 05:26 Pain Intensity Abdomen: Pain Intensity: 8 Notes Mental Status: alert / awake / arousable and participated in evaluation Nausea / Vomiting: adequately controlled Pain: adequately controlled Airway Patency, RR, SpO2: stable & adequate BP & HR: stable & adequate Hydration State: stable & adequate Neuraxial Anesthesia: was administered and sensory block is resolving Anesthetic Complications: no major complications apparent and Pt Satisfied with anesthetic care Epidural: Removed without complications and With tip intact
[2023-10-11] MEDS: DOCUSATE SODIUM 100 MG CAP PO SCH ×2 (07:31→20:40)
[2023-10-11] MEDS: IBUPROFEN 600 MG TAB PO PRN ×2 (07:31→17:38)
[2023-10-11] MEDS: PRENATAL VITAMIN 1 TAB PO SCH (07:31)
[2023-10-11] MEDS: ACETAMINOPHEN 325 MG TAB PO PRN (20:40)
--- NOTE | 2023-10-12 04:53 | Obstetrical Progress Note ---
Date of Service <Mack Woodruff DO - Last Filed: 10/12/23 06:03> October 12, 2023 Assessment & Plan <Mack WoodruffDO ivan - Last Filed: 10/12/23 06:03> (1) care following vaginal delivery: Plan 28 year old , PPD#1: Eating well, voiding well apart from occasional leakage of urine, ambulating well Vitals reviewed, WNL Pain well controlled with Tylenol and Motrin Routine care - OOB, ambulation, diet progression as tolerated Will have 6 week follow up with Dr. Garcia <Lucero Min MD - Last Filed: 10/12/23 08:11> (1) care following vaginal delivery: Subjective <Mack Woodruff DO - Last Filed: 10/12/23 06:03> Ambulation: ambulating normally Voiding: incontinence (notes occasional leakage of urine, overall improving) Passing Gas:: Yes Diet Tolerance:: regular diet Lochia:: Moderate Feeding Type:: breast feeding pain well controlled with Tylenol and Motrin Review of Systems -Denies fever or chills -Denies dyspnea, chest pain, or palpitations -Denies dysuria -Denies headache or changes in vision Physical Exam <Mack Woodruff DO - Last Filed: 10/12/23 06:03> General: Alert and oriented. No acute distress Cardiac: Regular rate and rhythm, no murmurs appreciated Respiratory: Lungs clear to auscultation bilaterally, No increased work of breathing Abdominal: Soft, non-tender, non-distended. Bowel sounds present. Uterus: Uterine fundus firm, palpable below umbilicus Extremities: No lower extremity edema, calves non-tender bilaterally Results & Data <Mack Woodruff DO - Last Filed: 10/12/23 06:03> Vital Signs (Past 12 Hours) Vital Signs Temp Pulse Resp BP Pulse Ox O2 Del Method 10/12/23 00:05 36.5 C 88 20 106/82 98 Room Air 10/11/23 20:00 36.5 C 94 H 20 104/69 96 Room Air Supervising Physician <Lucero Min MD - Last Filed: 10/12/23 08:11> Co-Signing Physician Notes Resident Physician Supervision Note: I interviewed and examined the patient. Discussed with Dr. Woodruff and agree with findings and plan as documented in the note. Any exceptions or clarifications are listed here: PP1 s/p . Having a lot of anxiety related to and feeling very overwhelmed. itself is going ok but baby takes a while and so feels like there is no rest for her. VSS, exam benign and wnl. Discussed common that new moms have anxiety/feeling overwhelmed with everything but if needs to stop for her mental health it's ok. Continue routine care Documented By: Lucero Min MD Resident Activity Tracking <Mack Woodruff, DO - Last Filed: 10/12/23 06:03> Resident Involvement: Resident Care Provided Care Provided: OB Delivery
[2023-10-12] MEDS: DOCUSATE SODIUM 100 MG CAP PO SCH ×2 (07:43→20:28)
[2023-10-12] MEDS: PRENATAL VITAMIN 1 TAB PO SCH (07:43)
[2023-10-12] MEDS: IBUPROFEN 600 MG TAB PO PRN ×3 (12:58→22:25)
[2023-10-12] MEDS: ACETAMINOPHEN 325 MG TAB PO PRN (19:57)
[2023-10-13] MEDS: IBUPROFEN 600 MG TAB PO PRN ×2 (02:45→08:16)
[2023-10-13] MEDS: PRENATAL VITAMIN 1 TAB PO SCH (08:16)
[2023-10-13] MEDS: DOCUSATE SODIUM 100 MG CAP PO SCH (08:16)
--- NOTE | 2023-10-13 09:07 | Obstetrical Progress Note ---
Date of Service October 13, 2023 Assessment & Plan (1) care following vaginal delivery: PPD#2 doing well. Reviewed DC instructions, followup office 6w. Subjective Ambulation: ambulating normally Voiding: no voiding problems Diet Tolerance:: regular diet Lochia:: Moderate Review of Systems All systems reviewed & are unremarkable except as noted in HPI & below Physical Exam Constitutional WD/WN, vitals as above no acute distress Respiratory normal respiratory effort Cardiovascular Rate/Rhythm: regular rate and regular rhythm Gastrointestinal (Abdomen) Inspection/Auscultation: abdomen normal to inspection; abdomen not distended Percussion/Palpation: abdomen soft Genitourinary OB Exam Abdomen: + fundal height Fundus: + firm; not tender Results & Data Vital Signs (Past 12 Hours) Vital Signs Temp Pulse Resp BP Pulse Ox O2 Del Method 10/13/23 07:10 36.8 C 91 H 20 105/72 100 Room Air 10/12/23 23:30 36.5 C 88 20 104/70 100 Room Air
== END 2023-10-13 11:45 | disposition home health service (06) | DRG 807 ==
LOC: 4S1 07:36 → 4E1 10-11 08:15